=== PATIENT | male | born 2000 | race Caucasian/White ===

== ENCOUNTER 2024-12-09 09:38 | Emergency (ER) | payer SELFPAY ==
--- NOTE | 2024-12-09 09:40 | US_ITS ---
WS: [id number] SCROTAL ULTRASOUND EXAMINATION CLINICAL INFORMATION: pain/swelling COMPARISON: None. FINDINGS: TESTES RIGHT testicle is normal in appearance. Slight heterogeneity with increased vascularity in the LEFT testicle suspicious for orchitis. Right testes size: 4.3 cm x 3.0 cm x 1.9 cm. Left testes size: 4.2 cm x 2.6 cm x 2.4 cm. EPIDIDYMIDES Normal in size and echotexture, without focal lesion. Color Doppler: Normal color Doppler flow pattern. Right epididymis size: 0.6 cm x 0.7 cm x 1.3 cm. Left epididymis size: 0.7 cm x 0.6 cm x 0.9 cm. HYDROCELE None. 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 US/US scrotum [id number] IMPRESSION: 1. Findings suspicious for mild LEFT orchitis. Recommend follow-up to resolnhi on. 2. 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 3. No other acute findings
--- NOTE | 2024-12-09 09:51 | W.ED.MALEGU ---
HPI - Male Genitourinary General: Stated complaint: testicular pain, swelling Time Seen by Provider: 12/09/24 09:40 Source: patient Mode of arrival: ambulatory Limitations: no limitations History of Present Illness: Patient is a 24-year-old male who presents to ED today with a complaint of bilateral scrotal discomfort over the past 3 to 4 months. He states pain seems to be worse in the mornings and complains of it aching and throbbing . It does somewhat improve during the day. He has not noticed any edema or redness/warmth. He is not having any penile discharge or dysuria. He is monogamous with his partner of 2 years. He states his mom is a nurse and told him he could have epididymitis. He does engage in insertive anal intercourse. MD Complaint: other (scrotal pain) Onset (ago): month(s) Duration: constant Location: right testicle and left testicle Radiation: right testicle and left testicle Severity: mild Quality: aching Relieving factors: none Exacerbating factors: none Associated symptoms: Reports no associated symptoms; Deny dysuria, hematuria, nausea, urinary incontinence or vomiting Related Data Previous Rx's ?Medication ?Instructions ?Recorded levofloxacin 500 mg tablet 500 mg PO DAILY 10 days #10 tabs 12/09/24 Review of Systems Const: Denies: fever(s), chills, body aches, fatigue or malaise Card: Denies: chest pain Resp: Denies: dyspnea GI: Denies: abdominal pain, nausea, vomiting or diarrhea : Reports: testicular pain; Denies: flank pain, difficulty urinating, dysuria, urinary frequency, urinary urgency, urinary hesitancy, change in urine stream, urinary incontinence, hematuria, genital lesions, penile discharge, testicular mass, scrotal swelling, painful ejaculations or hematospermia Skin/Breast: Denies: rash Physical Exam Const: COMMON NORMALS: average body habitus, patient oriented x3, no limitations, healthy appearing, alert and well nourished GENERAL APPEARANCE: cooperative and anxious Resp: COMMON NORMALS: normal respiratory effort and clear to auscultation bilaterally AUSCULTATION: clear to auscultation bilaterally Cardio: COMMON NORMALS: regular rate and regular rhythm RATE: regular rate RHYTHM: regular rhythm GI: COMMON NORMALS: Normal to inspection, nondistended, normoactive bowel sounds present, Soft to palpation, non-tender, No hepatosplenomegaly present and no masses AUSCULTATION: Yes normoactive bowel sounds PALPATION: Yes Soft to palpation, No Tenderness to palpation present (GI), No Guarding due to palpation present (GI), No Rigid due to palpation and Yes No hepatosplenomegaly present : COMMON NORMALS: Yes no CVA tenderness BLADDER/KIDNEY EXAM: Yes no CVA tenderness PENIS: normal penis MEATUS: meatus normal SCROTUM: Yes testes descended bilaterally, No erythematous, No edematous and No scrotal swelling TESTES: Yes testicular lie normal, Yes testicular tenderness and Yes epididymal tenderness Back/Pelvis: COMMON NORMALS: no CVA tenderness Neuro: COMMON NORMALS: patient oriented x3 SENSORIUM/ORIENTATION: Yes alert MDM - Male Medical Decision Making US imaging showing bilateral varicosities in the spermatic cords. Also had findings suspicious for a mild left orchitis. Attempted UA and gonorrhea/chlamydia off of his urine but he adamantly declines urine sample. Will go ahead and cover with IM Rocephin and oral Levaquin. Will have case management get him follow-up with urology in case symptoms do not improve. Return precautions discussed. Lab Data Radiology Impressions Scrotum Ultrasound 12/09/24 09:40 IMPRESSION: 1. Findings suspicious for mild LEFT orchitis. Recommend follow-up to resolution. 2. 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 3. No other acute findings All radiology interpretation(s) finalized by discharge Discharge Plan Discharge Patient Disposition: Home Clinical Impression: Scrotal varicose veins, Orchitis, left Condition: Stable Prescriptions: New levofloxacin 500 mg tablet 500 mg PO DAILY 10 Days Qty: 10 0RF Discharge Orders: Discharge ED (Routine); Ordered 12/09/24 Ordered By: Abigail Payne Patient Instructions: Orchitis (ED), Scrotal Pain (ED), Patient Portal & Emile Instructions Activity Restrictions/Additional Instructions: As we discussed, case management should reach out to you to help set you up with a follow-up urology appointment in case symptoms do not improve. You may return to the emergency department for onset of severe or worsening scrotal pain, redness, swelling, fevers, generally feeling worse or unwell, or any other concerns you may have. Print Language: [place] Citizen Coding Level of Care Code ED Sales Representative Facility Services for Laisha Reeves
[2024-12-09 10:00] VITALS: BP 138/73; PULSE 103; RESP 20; TEMP 36.9; O2SAT 98; BMI 19.3
[2024-12-09] MEDS: cefTRIAXone 1,000 MG in water for injection-sterile 2.1 ML 2.1 MG IM (11:25)
== END 2024-12-09 11:30 | disposition home or self-care (01) ==
PROVIDERS: Emergency Provider Physician Assistant
DX: I86.1 Scrotal varices (principal); N45.2 Orchitis
CPT/HCPCS: 76870; 96372; 99284; J0696